=== PATIENT | female | born 1945 | race Caucasian/White ===

== ENCOUNTER → 2019-09-27 11:12 | Outpatient (CLI) | payer MEDICARE, SELFPAY ==
--- NOTE | ~2019-09-27 | MM_ITS ---
EXAMINATION: MM screening chaitanya BI w jodie HISTORY: Screening mammogram TECHNIQUE: Craniocaudal and mediolateral oblique 3-D tomosynthesis images were obtained and synthetic 2-D images were generated. CAD analysis was submitted and interpreted. COMPARISON: 09/04/2018, 08/30/2017, 09/03/2016 bilateral digital screening mammogram examinations BREAST PARENCHYMAL COMPOSITION: There are scattered areas of fibroglandular density. FINDINGS: Stable mild fibroglandular asymmetry. Scattered benign calcifications are noted bilaterally . There is no evidence of suspicious mass, calcification, or architectural distortion to suggest monty gnancy in either breast. There has been no suspicious interval change. IMPRESSION: 1. No mammographic evidence of malignancy. 2. Recommend routine screening mammography in one year. BI-RADS Category 2: Benign finding(s). Reviewed, dictated and finalized at location A. 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
== END ==
PROVIDERS: PCP Family Medicine; Visit Provider Obstetrics & Gynecology
DX: Z12.31 Encounter for screening mammogram for malignant neoplasm of breast (principal)
CPT/HCPCS: 77063; 77067

== ENCOUNTER 2020-11-21 10:52 | Outpatient (CLI) | payer MEDICARE, SELFPAY ==
--- NOTE | ~2020-11-21 | MM_ITS ---
EXAMINATION: MM screening chaitanya BI w jodie HISTORY: Screening mammogram TECHNIQUE: Craniocaudal and mediolateral oblique 3-D tomosynthesis images were obtained and synthetic 2-D images were generated. CAD analysis was submitted and interpreted. COMPARISON: 09/27/2019, 09/04/2018, 08/30/2017 bilateral digital screening mammogram examinations BREAST PARENCHYMAL COMPOSITION: There are scattered areas of fibroglandular density. FINDINGS: Scattered bilateral benign calcifications. There is no evidence of suspicious mass, calcifi cation, or architectural distortion to suggest malignancy in either breast. There has been no suspici ous interval change. IMPRESSION: 1. No mammographic evidence of malignancy. 2. Recommend routine screening mammography in one year. BI-RADS Category 2: Benign finding(s). Reviewed, dictated and finalized at location A.
== END 2020-11-21 10:53 | disposition home or self-care (01) ==
LOC: ANHIMG 10:56
PROVIDERS: PCP Physician Assistant; Visit Provider Obstetrics & Gynecology
DX: Z12.31 Encounter for screening mammogram for malignant neoplasm of breast (principal)
CPT/HCPCS: 77063; 77067

== ENCOUNTER 2021-10-07 01:03 | Day surgery (SDC) | payer MEDICARE, SELFPAY ==
[2021-08-28 15:14] VITALS: BMI 33.9
[2021-09-23 14:43] VITALS: BMI 34.0
--- NOTE | 2021-10-06 18:18 | P.CONGI_ITS ---
Assessment and Plan Assessment and plan (1) Dysphagia: Code(s): R13.10 - Dysphagia, unspecified Status: Acute Assessment and Plan: EGD with possible biopsy or dilatation or cautery. (2) Colon cancer screening: Code(s): Z12.11 - Encounter for screening for malignant neoplasm of colon Status: Acute Assessment and Plan: Colonoscopy with possible biopsy or polypectomy or cautery or injection of substances. GI Consult Note Consult date/time: 10/06/21 18:18 HPI: Apoorva Quiros is a 76 year old female was referred because of dysphag ia. She has had esophageal dilatations in the past. 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 The last time she required esophageal dilatation for stricture was about 7 years ago. She is also due for colon cancer screening. Review of Systems Review of Systems: All systems reviewed & are unremarkable except as noted in HPI and below PMFSH Past Medical History Medical History Anxiety Cancer History of lung cancer Family History Family History Father Diabetes mellitus Hypertension Heart disease Mother Breast cancer Hypertension Heart disease Sibling Diabetes mellitus Hypertension Cancer Grandparent Heart disease Social History Social History Smoking status: Former smoker Tobacco type: cigarettes Alcohol intake: never Substance use: never Substance use type: does not use Living arrangements: with family Spiritual care concerns: No Meds Home Medications and Allergies Home Medications Medication Instructions Recorded Confirmed Type Hylands Leg Cramps 1 tablet PO DAILY 10/06/20 08/28/21 History aspirin-caffeine 500 mg-32.5 mg 1 tablet PO DAILY 10/06/20 08/28/21 History tablet hydroxychloroquine 200 mg tablet 200 mg PO BID 10/06/20 08/28/21 History multivitamin 1 tablet PO DAILY 10/06/20 08/28/21 History omeprazole 20 mg capsule,delayed 20 mg PO DAILY #90 cap 04/06/21 08/28/21 Rx release rosuvastatin 10 mg tablet 10 mg PO DAILY #90 tablet 04/06/21 08/28/21 Rx triamterene 37.5 See Rx Instructions .ROUTE 04/06/21 08/28/21 Rx mg-hydrochlorothiazide 25 mg .COMPLEX #90 cap capsule temazepam 30 mg capsule 30 mg PO QHS PRN #90 cap 08/18/21 08/28/21 Rx diazepam [Valium] 5 mg PO HS PRN 08/28/21 08/28/21 History metoprolol succinate 25 mg PO DAILY 08/28/21 08/28/21 History Allergies Allergy/AdvReac Type Severity Reaction Status Date / Time No Known Allergies Allergy Verified 10/07/21 09:21 Exam Const: General: alert Orientation/consciousness: patient oriented x3 Resp: Auscultation: clear to auscultation bilaterally Cardio: Rhythm: regular rhythm GI: GI Palp: Yes Soft to palpation and No Tenderness to palpation present (GI) Neuro: General: patient oriented x3
[2021-10-07 09:23] VITALS: BP 175/75; PULSE 102; RESP 18; TEMP 36.6; O2SAT 100
[2021-10-07] MEDS: LACTATED RINGERS 1,000 ML 150 ML IV CONT (09:46)
--- NOTE | 2021-10-07 10:28 | P.PNAN_ITS ---
Anes - Initial Pre Proc Eval Procedure: Operation Date: 10/07/21 10:30 Proposed Procedures p Esophagogastroduodenoscopy & Screening Colonoscopy - Krystian Felix MD Date/Time: 10/07/21 10:28 Surgeon: Krystian Felix MD Pre Op Diagnosis: NEoplasm Screen,Dysphagia Patient Data Age: 76 Gender: F Height: 1.68 m Weight: 95.5 kg Last Vital Signs Temp 97.9 F 10/07/21 09:23 Pulse 102 H 10/07/21 09:23 Resp 18 10/07/21 09:23 BP 175/75 H 10/07/21 09:23 Pulse Ox 100 10/07/21 09:23 Allergies Allergy/AdvReac Type Severity Reaction Status Date / Time No Known Allergies Allergy Verified 10/07/21 09:21 Home Medications Medication Instructions Recorded Confirmed Type Hylands Leg Cramps 1 tablet PO DAILY 10/06/20 08/28/21 History aspirin-caffeine 500 mg-32.5 mg 1 tablet PO DAILY 10/06/20 08/28/21 History tablet hydroxychloroquine 200 mg tablet 200 mg PO BID 10/06/20 08/28/21 History multivitamin 1 tablet PO DAILY 10/06/20 08/28/21 History omeprazole 20 mg capsule,delayed 20 mg PO DAILY #90 cap 04/06/21 08/28/21 Rx release rosuvastatin 10 mg tablet 10 mg PO DAILY #90 tablet 04/06/21 08/28/21 Rx triamterene 37.5 See Rx Instructions .ROUTE 04/06/21 08/28/21 Rx mg-hydrochlorothiazide 25 mg .COMPLEX #90 cap capsule temazepam 30 mg capsule 30 mg PO QHS PRN #90 cap 08/18/21 08/28/21 Rx diazepam [Valium] 5 mg PO HS PRN 08/28/21 08/28/21 History metoprolol succinate 25 mg PO DAILY 08/28/21 08/28/21 History Patient hx anesthesia problems: none Family hx anesthesia problems: none Results Review: All pre-operative results and documents have been reviewed as part of the pre-operative evaluation. [facility]LY [facility] Past Medical History Medical History Anxiety Cancer History of lung cancer Family History Family History Father Diabetes mellitus Hypertension Heart disease Mother Breast cancer Hypertension Heart disease Sibling Diabetes mellitus Hypertension Cancer Grandparent Heart disease Social History Social History Smoking status: Former smoker Tobacco type: cigarettes Alcohol intake: never Substance use: never Substance use type: does not use Living arrangements: with family Spiritual care concerns: No Anes - Eval Final PreProcedure Day of Procedure 10/07/21 10:28 Patient weight: obese Heart: regular rate and rhythm Lungs: clear to auscultation Airway: Mallampati scale class II Neurological: alert and oriented Last oral intake: >/= 8 hours ASA classification: III Emergent: no Anesthetic plan: proceed Anesthesia type and monitoring: general GIVS and standard monitoring Results Review: All pre-operative results and documents have been reviewed as part of the pre-operative evaluation. Informed Consent: The patient's anesthetic plan and its attendant risks and benefits were discussed with the patient/family/POA. Questions were solicited and answers provided to the satisfaction of the patient/family/POA.
--- NOTE | 2021-10-07 10:59 | SUR.OPER ---
EGD ended at 1052. Colonoscopy started at 1058.
[2021-10-07 11:12] VITALS: BP 114/58; PULSE 91; RESP 19; O2SAT 100
[2021-10-07 11:22] VITALS: BP 143/80; PULSE 89; RESP 18; O2SAT 100
[2021-10-07 11:32] VITALS: BP 149/78; PULSE 69; RESP 18; O2SAT 100
== END 2021-10-07 11:42 | disposition home or self-care (01) ==
PROVIDERS: PCP Physician Assistant; Visit Provider Internal Medicine Gastroenterology
PROC: 0DJ08ZZ Inspection of Upper Intestinal Tract, Via Natural or Artificial Opening Endoscopic (ICD-10-PCS; CPT 43235; principal; 2021-10-07 10:30)
DX: Z12.11 Encounter for screening for malignant neoplasm of colon (principal); R13.10 Dysphagia, unspecified; K22.2 Esophageal obstruction; K29.50 Unspecified chronic gastritis without bleeding; K63.89 Other specified diseases of intestine; K64.8 Other hemorrhoids; F41.9 Anxiety disorder, unspecified; Z85.118 Personal history of other malignant neoplasm of bronchus and lung
CPT/HCPCS: 43249; 43239; G0121; 88305; C1726; J2704; J7120

== ENCOUNTER → 2021-11-23 10:03 | Outpatient (CLI) | payer MEDICARE, SELFPAY ==
--- NOTE | ~2021-11-23 | MM_ITS ---
EXAMINATION: MM screening chaitanya BI w jodie HISTORY: Screening mammogram TECHNIQUE: Craniocaudal and mediolateral oblique 3-D tomosynthesis images were obtained and synthetic 2-D images were generated. CAD analysis was submitted and interpreted. COMPARISON: 11/21/2020, 09/27/2019, 09/04/2018 bilateral screening mammogram examinations BREAST PARENCHYMAL COMPOSITION: There are scattered areas of fibroglandular density. FINDINGS: Scattered bilateral benign calcifications are again present. There is no evidence of suspic ious mass, calcification, or architectural distortion to suggest malignancy in either breast. There h as been no suspicious interval change. IMPRESSION: 1. No mammographic evidence of malignancy. 2. Recommend routine screening mammography in one year. BI-RADS Category 2: Benign finding(s). Reviewed, dictated and finalized at location A.
== END ==
PROVIDERS: Visit Provider Obstetrics & Gynecology
DX: Z12.31 Encounter for screening mammogram for malignant neoplasm of breast (principal)
CPT/HCPCS: 77063; 77067

== ENCOUNTER 2022-06-16 09:00 | Outpatient (NON) | payer MEDICARE, SELFPAY | END 2022-06-16 09:01 | disposition home or self-care (01) | PROVIDERS: PCP Physician Assistant; Visit Provider Surgery Plastic and Reconstructive Surgery | DX: C43.9 Malignant melanoma of skin, unspecified (principal) | CPT/HCPCS: 88305; 88342 ==

== ENCOUNTER → 2022-11-25 09:50 | Outpatient (CLI) | payer MEDICARE, SELFPAY ==
--- NOTE | ~2022-11-25 | MM_ITS ---
EXAMINATION: MM screening chaitanya BI w jodie HISTORY: Screening mammogram TECHNIQUE: Craniocaudal and mediolateral oblique 3-D tomosynthesis images were obtained and synthetic 2-D images were generated. CAD analysis was submitted and interpreted. COMPARISON: November 23, 2021, and 2020 and September 27, 2019 screening mammogram examinations BREAST PARENCHYMAL COMPOSITION: There are scattered areas of fibroglandular density. FINDINGS: There are scattered bilateral benign calcifications. There is no evidence of suspicious mas s, calcification, or architectural distortion to suggest malignancy in either breast. There has been no suspicious interval change. IMPRESSION: 1. No mammographic evidence of malignancy. 2. Recommend routine screening mammography in one year. BI-RADS Category 2: Benign finding(s). Reviewed, dictated and finalized at location A.
== END ==
PROVIDERS: PCP Obstetrics & Gynecology; Visit Provider Obstetrics & Gynecology
DX: Z12.31 Encounter for screening mammogram for malignant neoplasm of breast (principal)
CPT/HCPCS: 77063; 77067

== ENCOUNTER 2023-06-20 09:20 | Outpatient (CLI) | payer MEDICARE, SELFPAY ==
[2023-06-20 10:19] LABS: Appearance Urine Turbid (Clear); Bacteria Urine 4+ /hpf; Bilirubin Urine 1+ (Negative); Blood Urine Negative (Negative); Color Urine Dark Yellow (Yellow); Glucose Urine UA 3+ mg/dL (Negative); Ketones Urine Trace mg/dL (Negative); Leukocyte Esterase Ur 1+ LEU/UL (NEGATIVE); Need Manual Microscopic Reviewed; Nitrate Urine Negative (Negative); Protein Urine Trace mg/dL (Negative); Squamous Epithelial Cell Urine Many /hpf (Few); WBC Urine 21-50 /hpf (0-3); pH Urine 5.5 (5.0-9.0)
[2023-06-20 10:26] LABS: Specific Grav Ur 1.041 (1.001-1.035)
[2023-06-20 10:33] LABS: Add Urine Microscopic? YES
== END 2023-06-20 09:21 | disposition home or self-care (01) ==
PROVIDERS: PCP Physician Assistant; Visit Provider Physician Assistant
DX: R10.9 Unspecified abdominal pain (principal)
CPT/HCPCS: 81001; 87086

== ENCOUNTER 2023-07-04 06:53 | Outpatient (CLI) | payer MEDICARE, SELFPAY ==
--- NOTE | ~2023-07-04 | CT_ITS ---
EXAMINATION: CT chest abdomen pelvis w con DATE: 07/04/2023 07:31 INDICATION: Lung nodules. Low back pain. TECHNIQUE: Computed tomography (CT) of the chest, abdomen, and pelvis was performed with 100 mL Omnip aque 350 intravenous contrast. Automated exposure control and iterative reconstruction technique were employed. The dose-length product was 781.48 mGy-cm. COMPARISON: CT abdomen and pelvis 08/06/2015, chest CT 03/07/2013 FINDINGS: CHEST CT: There are changes of left upper lobectomy. There is mild atelectasis bilaterally. A calcified right l atif nodule is consistent with old granulomatous disease. No pleural effusion. There are nodules in th e thyroid measuring up to 15 mm. The heart size is normal. No pericardial effusion. There are coronar y artery calcifications. There is severe cervical and thoracic spondylosis. There are benign bone isl ands in thoracic spine. ABDOMEN/PELVIS CT: There is a small sliding hiatal hernia. The liver, gallbladder, spleen, pancreas, and adrenal glands are normal. There are cysts in the kidneys measuring up to 7.3 cm on the right. There is calcified at herosclerosis of the aorta and many of the other arteries. There are no dilated loops of bowel. The a ppendix is not visualized. There are no pathologically enlarged lymph nodes. There is no free intrape ritoneal fluid. There is a benign bone island in left pelvis. There are benign bone islands in lumbar spine and proximal left femur. There is lumbar levoscoliosis and severe spondylosis. IMPRESSION: 1. Left upper lobectomy. 2. Small sliding hiatal hernia. 3. Multinodular goiter with worsening from 03/07/2013. Consider thyroid ultrasound for risk stratifica tion. 4. Severe spondylosis. Reviewed, dictated and finalized at location E. LINE WALKER IMPRESSION: 1. Left upper lobectomy. 2. Small sliding hiatal hernia. 3. Multinodular goiter with worsening from 03/07/2013. Consider thyroid ultrasou nd for risk stratification. 4. Severe spondylosis.
[2023-07-04 07:23] LABS: Estimated Glomerular Filt Rate 54
== END 2023-07-04 06:54 | disposition home or self-care (01) ==
PROVIDERS: PCP Physician Assistant; Visit Provider Physician Assistant
DX: M47.896 Other spondylosis, lumbar region (principal); E04.2 Nontoxic multinodular goiter; K44.9 Diaphragmatic hernia without obstruction or gangrene; Z85.118 Personal history of other malignant neoplasm of bronchus and lung
CPT/HCPCS: 71260; 74177; Q9967

== ENCOUNTER 2023-07-25 08:22 | Outpatient (CLI) | payer MEDICARE, SELFPAY ==
--- NOTE | ~2023-07-25 | US_ITS ---
EXAMINATION: US thyroid DATE: 07/25/2023 09:00 INDICATION: Thyroid nodule. TECHNIQUE: Multiple ultrasound images of the thyroid were obtained. COMPARISON: Ultrasound 03/14/2013 FINDINGS: The right thyroid lobe measures 4.0 x 1.9 x 1.9 cm. The left thyroid lobe measures 3.9 x 1.4 x 1.7 c m. In the right thyroid lobe, there is a 2.1 cm predominantly solid, hypoechoic, wider than tall nod ule with smooth margin without echogenic foci (TI-RADS TR4), stable from 03/14/13. In the right thyroi d lobe, there is a 7 mm predominantly solid, hypoechoic, wider than tall nodule with smooth margin wi thout echogenic foci (TR4). In the left thyroid lobe, there is a 2.0 cm probably solid, hypoechoic, w ider than tall nodule with ill-defined margin without echogenic foci (TR4), stable from 03/14/13. IMPRESSION: 1. Thyroid nodules, likely not clinically significant. No follow-up is needed. Reviewed, dictated and finalized at location A. 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
== END 2023-07-25 08:23 | disposition home or self-care (01) ==
PROVIDERS: PCP Physician Assistant; Visit Provider Physician Assistant
DX: E04.2 Nontoxic multinodular goiter (principal)
CPT/HCPCS: 76536

== ENCOUNTER 2023-11-30 08:57 | Outpatient (CLI) | payer MEDICARE, SELFPAY ==
--- NOTE | ~2023-11-30 | XR_ITS ---
Right Shoulder Technique: AP and scapular Y views were obtained. Clinical History: Pain Findings: No fracture or dislocation is seen. Osseous alignment is anatomic. There is mild AC joint d egenerative change. Glenohumeral joint intact. Soft tissues are unremarkable. Impression: . Mild AC joint degenerative change, otherwise unremarkable exam. Reviewed, dictated and finalized at location . Impression: . Mild AC joint degenerative change, otherwise unremarkable exam.
--- NOTE | ~2023-11-30 | XR_ITS ---
Right elbow Technique: AP and lateral views were obtained. Clinical History: Pain Findings: No acute fracture or dislocation is seen. Osseous alignment is anatomic. Joint spaces are p reserved. There is no displacement of the fat pads, and soft tissues are unremarkable. Impression: Unremarkable radiographs. Reviewed, dictated and finalized at location . Impression: Unremarkable radiographs.
== END 2023-11-30 08:58 | disposition home or self-care (01) ==
PROVIDERS: PCP Physician Assistant; Visit Provider Physician Assistant
DX: M25.521 Pain in right elbow (principal); M19.011 Primary osteoarthritis, right shoulder
CPT/HCPCS: 73030; 73070

== ENCOUNTER 2024-01-10 07:38 | Outpatient (CLI) | payer MEDICARE, SELFPAY ==
--- NOTE | ~2024-01-10 | MR_ITS ---
MRI of the lumbar spine Clinical History: Radiculopathy Technique: Axial T2-weighted images, and sagittal T1-weighted, T2-weighted, and T2 fat-sat images wer e acquired. Findings: There is no fracture of the lumbar spine. There is minimal grade 1 anterolisthesis of L2 ov er L3. There is 4 mm anterolisthesis of L4 over L5. There are type I Modic changes about the L1-L2 di sc space. Probable minimal type I Modic changes about the L4-L5 disc space at the inferior L4 endplat e region. No suspicious bone marrow signal abnormality seen. At L1-L2, there is advanced degenerative disc narrowing. There is disc bulge most prominent at the le ft foraminal region. There is minimal central canal stenosis. There is moderate facet arthropathy elliott aterally. There is moderate left neural foraminal narrowing. At L2-L3, there is mild to moderate degenerative disc narrowing. There is diffuse disc bulge and adva nced facet arthropathy. No central canal stenosis. Neural foramina are preserved. At L3-L4, there is severe degenerative disc narrowing. There is diffuse disc bulge and severe facet a rthropathy, resulting in mild central canal stenosis/thecal sac compression. There is mild to moderat e right neural foraminal narrowing. Left neural foramen preserved. At L4-L5, there is diffuse disc bulge/uncovering with severe facet arthropathy, which results in sera re spinal canal stenosis/thecal sac compression. There is moderate to severe left neural foraminal na rrowing. There is minimal right neural foraminal narrowing. At L5-S1, disc bulge and moderate facet arthropathy are present. No central canal stenosis. There is severe left neural foraminal narrowing. Right neural foramen preserved. Paravertebral soft tissues are unremarkable. Impression: Severe degenerative spondylosis, as detailed above. Findings are probably worst at L4-L5. Grade 1 listheses, as above. Reviewed, dictated and finalized at location M. Impression: Severe degenerative spondylosis, as detailed above. Findings are probably worst at L4-L5. Grade 1 listheses, as above.
== END 2024-01-10 07:39 | disposition home or self-care (01) ==
PROVIDERS: PCP Physician Assistant; Visit Provider Physician Assistant
DX: M47.896 Other spondylosis, lumbar region (principal); M43.16 Spondylolisthesis, lumbar region
CPT/HCPCS: 72148

== ENCOUNTER 2024-01-19 11:22 | Outpatient (CLI) | payer MEDICARE, SELFPAY ==
--- NOTE | ~2024-01-19 | MM_ITS ---
EXAMINATION: MM screening chaitanya BI w jodie HISTORY: Screening TECHNIQUE: Craniocaudal and mediolateral oblique 3-D tomosynthesis images were obtained and synthetic 2-D images were generated. CAD analysis was submitted and interpreted. COMPARISON: Comparison to multiple prior studies sequentially, with oldest reviewed study dated 08/30. BREAST PARENCHYMAL COMPOSITION: Not dense: There are scattered areas of fibroglandular density. FINDINGS: There is no evidence of suspicious mass, calcification, or architectural distortion to sugg est malignancy in either breast. There has been no suspicious interval change. IMPRESSION: 1. No mammographic evidence of malignancy. 2. Recommend routine screening mammography in one year. BI-RADS Category 1: Negative Reviewed, dictated and finalized at location B.
== END 2024-01-19 11:23 ==
PROVIDERS: PCP Obstetrics & Gynecology; Visit Provider Obstetrics & Gynecology
DX: Z12.31 Encounter for screening mammogram for malignant neoplasm of breast (principal)
CPT/HCPCS: 77063; 77067

== ENCOUNTER 2024-04-09 12:51 | Outpatient (CLI) | payer MEDICARE, SELFPAY ==
--- NOTE | ~2024-04-09 | MR_ITS ---
EXAMINATION: MR shoulder RT wo con DATE: 04/09/2024 13:53 INDICATION: Unspecified disorder of synovium and tendon, right shoulder. TECHNIQUE: Magnetic resonance imaging (MRI) of the right shoulder was performed without intravenous c ontrast. Sequences included axial PD-weighted FS FSE, coronal oblique PD-weighted FS FSE and T2-weigh girish FS FSE, and sagittal oblique T2-weighted FS FSE and T1-weighted FSE. COMPARISON: Right shoulder radiographs 11/30/2023 FINDINGS: Coracoacromial arch: The acromion undersurface is curved in morphology with anterior hook (type III). There is severe acro mioclavicular joint osteoarthritis including inferiorly directed osteophytes. There is severe subacro mial/subdeltoid bursitis. Rotator cuff: There is a full-thickness tear of supraspinatus and infraspinatus tendons measuring 3.5 cm anterior t o posterior by 3.7 cm proximal to distal. Teres minor tendon is normal. There is an articular-sided p artial tear of subscapularis tendon. There is mild fatty atrophy of the rotator cuff muscle bellies, worst in subscapularis muscle. Biceps tendon and glenoid labrum: There is a complete tear of proximal biceps tendon. There is degenerative tearing of the glenoid labr um. Fluid: There is a large glenohumeral joint effusion. Bones/cartilage: There is deep partial-thickness cartilage loss of glenoid and humeral head. Osteophytes are noted. IMPRESSION: 1. Full-thickness rotator cuff tear. 2. Moderate glenohumeral joint chondrosis. 3. Complete tear of proximal biceps tendon. 4. Severe acromioclavicular joint osteoarthritis. 5. Large glenohumeral joint effusion and severe subacromial/subdeltoid bursitis. Reviewed, dictated and finalized at location A. IMPRESSION: 1. Full-thickness rotator cuff tear. 2. Moderate glenohumeral joint chondrosis. 3. Complete tear of proximal biceps tendon. 4. Severe acromioclavicular joint osteoarthritis. 5. Large glenohumeral joint effusion and severe subacromial/subdeltoid bursitis .
== END 2024-04-09 12:52 | disposition home or self-care (01) ==
PROVIDERS: PCP Internal Medicine; Visit Provider Orthopaedic Surgery
DX: M67.921 Unspecified disorder of synovium and tendon, right upper arm (principal); M75.111 Incomplete rotator cuff tear or rupture of right shoulder, not specified as traumatic; M19.011 Primary osteoarthritis, right shoulder; M25.411 Effusion, right shoulder; S46.211D Strain of muscle, fascia and tendon of other parts of biceps, right arm, subsequent encounter; X58.XXXD Exposure to other specified factors, subsequent encounter
CPT/HCPCS: 73221

== ENCOUNTER 2024-06-28 12:27 | Outpatient (CLI) | payer MEDICARE, SELFPAY ==
--- NOTE | ~2024-06-28 | US_ITS ---
EXAM: Focused ultrasound examination of the soft tissues of the right hip HISTORY: R22.41 - Localized swelling, mass and lump, right lower limb TECHNIQUE: Sonographic evaluation of the soft tissues of the right hip were performed assessing deisy mynor appearance and color Doppler flow. COMPARISON: None. FINDINGS: Within the area of clinical concern is a well-circumscribed focus of increased echogenicity measuring 5.4 x 1.5 x 3.1 cm, sonographically representing a lipoma. Sonographic evaluation of the remainder of the soft tissues of the right hip demonstrate benign fibro fatty and fibromuscular elements without a cystic or solid lesion of concern. IMPRESSION: Findings suggestive of a lipoma within the area of clinical concern. Reviewed, dictated and finalized at location A. IT CHECKER
== END 2024-06-28 12:28 | disposition home or self-care (01) ==
PROVIDERS: PCP Internal Medicine; Visit Provider Internal Medicine
DX: R22.41 Localized swelling, mass and lump, right lower limb (principal)
CPT/HCPCS: 76882

== ENCOUNTER 2024-09-19 09:38 | Outpatient (CLI) | payer MEDICARE, SELFPAY ==
--- OUTSIDE RECORDS SUMMARY | 2024-09-19 10:27 | XMS_ITS | Referral Summary ---
Author Organization [facility] Address [address] [place] [address] Care Team Providers Care Neuroscience Specialist Name Role Phone Marcello Vega PA-C Primary Care Provide r Source Comments [facility],non-owned Affiliates and Associated Physician Practices is amultiple site organization consisting of ambulatory clinics and hospital sitesin [place], [place], [place] and [place]. This disclosure is being madepursuant to the Care Everywhere program and may not contain all information available regarding this patient. Last updated 18.[facility] [employer] Social History Tobacco Use Types Packs/Day Years Used Date Smoking Tobacco: Never Assessed Sex and Gender Information Value Date Recorded Sex Assigned at Not on file Gender Identity Not on file Sexual Orientation Not on file Plan of Treatment Not on file Care Teams Neuroscience Specialist Relationship Specialty Start Date End Date Marcello Vega PA-C [address] [place] [address] PCP - General 10/09/21
--- OUTSIDE RECORDS SUMMARY | 2024-09-19 10:27 | XMS_ITS | Clinical Summary ---
Author Organization [facility] Address [address] [place] [address] Care Team Providers Care Photographic Processor Name Role Phone Marcello Vega PA-C Primary Care Provide r Source Comments [facility],non-owned Affiliates and Associated Physician Practices is amultiple site organization consisting of ambulatory clinics and hospital sitesin [place], [place], [place] and [place]. This disclosure is being madepursuant to the Care Everywhere program and may not contain all information available regarding this patient. Last updated 18.[facility] [employer] Social History Tobacco Use Types Packs/Day Years Used Date Smoking Tobacco: Never Assessed Sex and Gender Information Value Date Recorded Sex Assigned at Not on file Gender Identity Not on file Sexual Orientation Not on file Plan of Treatment Health Maintenance Due Date Last Done Comments BONE DENSITY TESTING 1945 MEDICARE AWV ? 12 MONTHS 1945 HEPATITIS C SCREENING 06/25/1964 DTAP/TDAP/TD VACCINES (1 - Tdap) 1965 PNEUMOCOCCAL VACCINE 50+ (1 of 1 - PCV) 1996 ZOSTER VACCINE (1 of 2) 1996 Respiratory Syncytial Virus (RSV) Vaccine Pt: or over 60 yrs (1 - 1-dose 75+ series) 2021 COVID-19 VACCINE ( - 2023-2 5 season) 2024 INFLUENZA VACCINE (#1) 2024 DEPRESSION SCREENING 08/15/2024 HEPATITIS B VACCINE Aged Out No longe r eligible based on patient's age to complete this topic HIB VACCINE Aged Out No longer eligi ble based on patient's age to complete this topic HPV VACCINE Aged Out No longer eligi ble based on patient's age to complete this topic MENINGOCOCCAL (Group B) VACCINE Aged Out No longer eligible based on patient's age to complete this topic MENINGOCOCCAL VACCINE Aged Out No marybeth daria eligible based on patient's age to complete this topic Care Teams Photographic Processor Relationship Specialty Start Date End Date Marcello Vega PA-C [address] [place] [address] PCP - General 10/09/21
--- OUTSIDE RECORDS SUMMARY | 2024-09-19 10:27 | XMS_ITS | Encounter Summary ---
Author Organization [facility] Address [address] [place] [address] Care Team Providers Care Veterinary Practitioner Name Role Phone Marcello Vega PA-C Primary Care Provide r Encounter Details Date Type Department Care Team (Late st Contact Info) Description 06/04/2022 Lab Requisition [facility] [address] [place] [address] Edis Negro MD [address] [place] [address] Social History Tobacco Use Types Packs/Day Years Used Date Smoking Tobacco: Never Assessed Sex and Gender Information Value Date Recorded Sex Assigned at Not on file Gender Identity Not on file Sexual Orientation Not on file documented as of this encounter Plan of Treatment Not on file documented as of this encounter Procedures Procedure Name Priority Date/Time Associated Diagnosis Comments DERMATOPATHOLOGY Routine 06/02/2022 12:0 0 AM CDT documented in this encounter Results * DERMATOPATHOLOGY (06/02/2022 12:00 AM CDT) Case Report Dermatopathology Report ? Case: [id number] ? Authorizing Provider: ??Edis Negro MD ?Collected: ? 06/02/2022 12:00 AM ? Ordering Location: ? [facility] ?Received: ?06/04/2022 06:47 AM ? Pathologist: ? Rosemary Real MD ? Specimen: ?Skin, right lower leg ? 3:55 PM [facility] DERMAT[facility]ATHOLOGY [facility]OR[facility] Final Diagnosis Specimen A. 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 Path#[id number] 2 3:55 PM [facility]ERMATOPATH[facility] Gross Description Specimen A: Received is one formalin filled container labeled with the patient's name and designated right lower leg. The specimen consists of a shave biopsy measuring 15x7x1 mm. Jar 0. 2 3:55 PM [facility] DERMATOPATHOLOGY [facility]ORATORY Microscopic Description Specimen A. SKIN, right lower leg: There is a proliferation of melanocytes distributed in an irregular pattern along the dermal-epidermal junction with single cells predominating. Extension down the follicular epithelium and focal areas of confluence are present. This melanocytic proliferation is highlighted on MART-1/Melan-A. This lesion is present at the margin of the specimen. 2 3:55 PM [facility] DERMATOPATH[facility]Y [facility]ORAT[facility] Disclaimer An external and internal positive and negative controls are appropriate for the histochemical, immunohistochemical and immunofluorescence stain(s) in this case (if any), except where stated explicitly. The performance characteristics of the stain(s) cited in this report were developed and its performance characteristic determined by the Dermatopathology Laboratory at [facility], directed by Dr. Ben Daigle. These tests need not be, and therefore are not, approved by the [place] Food and Drug Administration. The tests are used for clinical purposes. Billing Codes Specimen Charges Stain Charges 72374 1 93829 1 2 3:55 PM [facility] DERMATOPATHOLOGY LABORATORY Embedded Images 2 3:55 PM CDT DERMATOPATHOLOGY LABORATORY Pathology/Cytolog y TISSUE SPECIMEN FROM SKIN / Unknown 06/02/2022 06/04/2022 6:47 AM CDT Edis Negro MD LAB - PATHOLOGY/CYTO LOGY ORDERABLES DERMATOPATHOLOGY LABORATORY [facility] - Department of Dermatology [facility] [address] [place] [address], [address] [phone] documented in this encounter Visit Diagnoses Not on filedocumented in this encounter Care Teams Veterinary Practitioner Relationship Specialty Start Date End Date Marcello Vega PA-C [address] [place] [address] PCP - General 10/09/21 documented as of this encounter
--- OUTSIDE RECORDS SUMMARY | 2024-09-19 10:27 | XMS_ITS | Continuity of Care Document ---
Author Organization [facility] Address [address] [place] [address] utive [facility] [address] [place] [address] Phone Care Team Providers Care Configuration Management Architect Name Role Phone Everett Darby Unavailable Unavailable Procedures Procedure Date Office/outpatient Visit, [facility] Advance Directives Directive Yes / No Effective Date File Name No Information Encounters Encounter Description Practice Location Reason(s) For Visit Diagnoses Date Provider Providers Copied on Encounter Office/outpat ient Visit, [facility], [address], [place], [place], [address], [place] tel:[phone] [facility] No Information [address] [facility] [address], [address], [place]. tel:[phone] Family History Family Member Type Diagnosis Age At Onset No Information Payers Payer name Insurance type Covered republican ID Authoriza tion(s) No Information Social History Type Description Quantity Date Captured Comments Sex Female Smoking Status No Information Chief Complaint And Reason For Visit No Information Reason For Referral Reason For Referral No Information History Of Present Illness Encounter Date Complaint History Of Prese nt Illness No Information Functional Status Date Functional Assessmen t No Information Instructions Date Instruction Additional Infor mation No Information Assessments Type Assessment Date No Information Patient Care Teams Name Effective Dates (start - stop) Status Members No Information
--- OUTSIDE RECORDS SUMMARY | 2024-09-19 10:27 | XMS_ITS ---
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 Past Plans No past plan information found. Radiation Treatments * No radiation treatments are documented for this patient in [facility]. Treatments may have been administered in another system. Lifetime Dose Tracking * Chemical Lifetime Dose Automatic Entry Manual Entr y DLP 2,497 mGycm 2,497 mGycm 0 mGycm
--- OUTSIDE RECORDS SUMMARY | 2024-09-19 10:27 | XMS_ITS | Patient Health Summary ---
Author Organization [facility] Address [address] [place] [address] Care Team Providers Care Pension Examiner Name Role Phone Marcello Vega PA-C Primary Care Provide r Note from [facility],non-owned Affiliates and Associated Physician Practices is amultiple site organization consisting of ambulatory clinics and hospital sitesin [place], [place], [place] and [place]. This disclosure is being madepursuant to the Care Everywhere program and may not contain all information available regarding this patient. Last updated 18.[facility] Social History Tobacco Use Types Packs/Day Years Used Date Smoking Tobacco: Never Assessed Sex and Gender Information Value Date Recorded Sex Assigned at Not on file Gender Identity Not on file Sexual Orientation Not on file Procedures * DERMATOPATHOLOGY(Performed 06/02/2022) Results * DERMATOPATHOLOGY (06/02/2022 12:00 AM CDT) Case Report Dermatopathology Report ? Case: [id number] ? Authorizing Provider: ??Edis Negro MD ?Collected: ? 06/02/2022 12:00 AM ? Ordering Location: ? [facility] ?Received: ?06/04/2022 06:47 AM ? Pathologist: ? Rosemary Real MD ? Specimen: ?Skin, right lower leg ? 3:55 PM CDT DERMATOPATHOLOGY LABORATORY Final Diagnosis Specimen A. 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 Path#[id number] 2 3:55 PM CDT DERMATOPATHOLOGY LABORATORY Gross Description Specimen A: Received is one formalin filled container labeled with the patient's name and designated right lower leg. The specimen consists of a shave biopsy measuring 15x7x1 mm. Jar 0. 3:55 PM CDT DERMATOPATHOLOGY LABORATORY Microscopic Description Specimen A. SKIN, right lower leg: There is a proliferation of melanocytes distributed in an irregular pattern along the dermal-epidermal junction with single cells predominating. Extension down the follicular epithelium and focal areas of confluence are present. This melanocytic proliferation is highlighted on MART-1/Melan-A. This lesion is present at the margin of the specimen. 2 3:55 PM CDT DERMATOPATHOLOGY LABORATORY Disclaimer An external and internal positive and negative controls are appropriate for the histochemical, immunohistochemical and immunofluorescence stain(s) in this case (if any), except where stated explicitly. The performance characteristics of the stain(s) cited in this report were developed and its performance characteristic determined by the Dermatopathology Laboratory at [facility], directed by Dr. Ben Daigle. These tests need not be, and therefore are not, approved by the [place] Food and Drug Administration. The tests are used for clinical purposes. Billing Codes Specimen Charges Stain Charges 93676 1 66083 1 2 3:55 PM CDT DERMATOPATHOLOGY LABORATORY Embedded Images 2 3:55 PM CDT DERMATOPATHOLOGY LABORATORY Pathology/Cytolog y TISSUE SPECIMEN FROM SKIN / Unknown 06/02/2022 06/04/2022 6:47 AM CDT Edis Negro MD LAB - PATHOLOGY/CYTO LOGY ORDERABLES DERMATOPATHOLOGY LABORATORY [facility] - Department of Dermatology [facility] [address] [place] [address], [address] [phone] Care Teams Pension Examiner Relationship Specialty Start Date End Date Marcello Vega PA-C [address] [place] [address] PCP - General 10/09/21
--- OUTSIDE RECORDS SUMMARY | 2024-09-19 10:28 | XMS_ITS | Referral Summary ---
Author Organization [facility] Address [address] [place] [address] Care Team Providers Care Keg Raiser Name Role Phone Noé Mendosa DO Primary Care Provider [phone] Allergies No known active allergies Medications diazePAM (VALIUM) 5 mg tablet TK 1 T PO QD PRN STRESS 1 9 Active omeprazole (PriLOSEC) 20 mg capsule TK 1 C PO QD 1 9 Active temazepam (RESTORIL) 30 mg capsuleIndicat ions:Insomnia Take 1 capsule (30 mg total) by mouth nightly as needed for sleep Active rosuvastatin (CRESTOR) 10 mg tablet Take 1 tablet (10 mg total) by mouth daily Active empagliflozin (Jardiance) 10 mg tablet TAKE 1 TABLET(10 MG) BY MOUTH DAILY 90 tablet 2 4 Active metoprolol XL (TOPROL-XL) 25 mg extended release tablet TAKE 1 TABLET(25 MG) BY MOUTH DAILY 90 tablet 2 4 Active Entresto 24-26 mg tablet TAKE 1 TABLET BY MOUTH TWICE DAILY 60 tablet 11 4 Active spironolactone (ALDACTONE) 25 mg tablet TAKE 1 TABLET(25 MG) BY MOUTH DAILY 90 tablet 1 5 Active spironolactone (ALDACTONE) 25 mg tablet TAKE 1 TABLET(25 MG) BY MOUTH DAILY 90 tablet 1 4 09/13/19 25 Discontinued Active Problems Problem Noted Date Diagnosed Date Personal history of tobacco use 01/20/2021 History of lung or bronchial cancer 12/26/2018 Overview (12/26/2018): Left upper lobectomy by oTlu in December 2015 Hiatal hernia without gangrene or obstruction BMI 33.0-33.9,adult 12/26/2018 Mixed hyperlipidemia 12/26/2018 Essential hypertension 12/26/2018 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, bilateral legs 06/01/2018 Social History Tobacco Use Types Packs/Day Years Used Date Smoking Tobacco: Former Cigarettes 1.8 56 1 960 - 2006 Smokeless Tobacco: Never Tobacco Cessation:Counseling Given: Not Answered Alcohol Use Standard Drinks/Week Comments Not Currently 0 (1 standard drink = 0.6 oz pur e alcohol) Comments Unknown Sex and Gender Information Value Date Recorded Sex Assigned at Not on file Legal Sex Female 11:23 AM CHICKEN FANCIER Gender Identity Not on file Sexual Orientation Not on file Last Filed Vital Signs Vital Sign Reading Time Taken Comments Blood Pressure 142/80 02/23/2024 11:51 AM CDT Pulse 75 02/08/2024 9:42 AM CDT Temperature 36.6 ??C (97.9 ??F) 01/31/2024 8:11 AM CD T Respiratory Rate 18 01/31/2024 8:11 AM CDT Oxygen Saturation 98% 02/08/2024 9:42 AM CDT Inhaled Oxygen Concentration - - Weight 92.1 kg (203 lb) 02/15/2024 10:09 AM CDT Height 167.6 cm (5' 6 ) 02/15/2024 10:09 AM CDT Body Mass Index 32.77 02/15/2024 10:09 AM CDT Plan of Treatment Not on file [place] [address] [address] [facility] [address] [place] [id number] MEDICARE [facility] MEDICARE Care Teams Keg Raiser Relationship Specialty Start Date End Date Noé Mendosa DO PCP - General Internal Medicine 02/08/24
--- OUTSIDE RECORDS SUMMARY | 2024-09-19 10:28 | XMS_ITS | Clinical Summary ---
Author Organization [facility] Address [address] [place] [address] Care Team Providers Care Ict Account Manager Name Role Phone Noé Mendosa DO Primary Care Provider [phone] Allergies No known active allergies Medications diazePAM [...] upper lobe of left lung Atherosclerosis of [place] ar teries of extremities with intermittent claudication, bilateral legs 06/01/2018 Surgical History Surgery Date Site/Laterality Comments NC TOTAL ABDOMINAL HYSTERECT W/WO RMVL TUBE OVARY Hysterectomy - (Added by TW Conv) THYROID SURGERY Thyroid Surgery - -thyroid nodule removed (Added by TW Conv) NC COLONOSCOPY FLX DX W/SWAPNA J SPEC WHEN PFRMD Colonoscopy (Fiberoptic) - -07/2012 (Added by TW Conv) ESOPHAGOGASTRODUODENOSCOPY Diagnostic Esophagogastroduodenoscopy - 07/2013 (Added by TW Conv) NC BRNCHSC INCL FLUOR GDNCE DX W/CELL WASHG SPX Bronchoscopy (Diagnostic) - (Added by TW Conv) Medical History Medical History Date Comments Personal history of other di seases of the digestive system History of esophageal reflux - (Added by TW Conv) Personal history of other di seases of the circulatory system History of hypertension - (A dded by TW Conv) Personal history of other sp ecified conditions History of insomnia - (Added by TW Conv) Pure hyperglyceridemia Essential hypertriglyceridemia - (Added by TW Conv) Urinary incontinence Urinary inc ontinence - (Added by TW Conv) Personal history of malignan t melanoma of skin History of malignant melanom a - -stage 2 melanoma removed from hip about a year ago (Added by TW Conv) Personal history of other ma lignant neoplasm of skin History of basal cell carcin arlen - (Added by TW Conv) Personal history of other di seases of the digestive system History of hiatal hernia - ( Added by TW Conv) Cancer (CMS/HCC) (HCC) lung Hypertension Anxiety Arthritis Rheumatoid arthritis (HCC) Family History Medical History Relation Name Comments Heart disease Father Heart Disease - (Added by TW Conv) Breast cancer Mother Breast Cancer - (Added by TW Conv) Heart disease Mother Heart Disease - (Added by TW Conv) Uterine cancer Sister Uterine Cance r - (Added by TW Conv) Relation Name Status Comments Father Mother Sister Social History Tobacco Use Types Packs/Day Years [...] on file Legal Sex Female 11:23 AM HAIR TINTER Gender Identity Not on file Sexual Orientation Not on file Obstetrics History Last Filed Vital Signs Vital Sign Reading [...] 02/15/2024 10:09 AM CDT Plan of Treatment Health Maintenance Due Date Last Done Comments Depression Screening 1945 Fall Risk Assessment 1945 Hepatitis C Screening 1945 Osteoporosis Screening-Bone Density Scan 1945 DTaP/Tdap/Td Vaccine (1 - Tdap) 1957 Hepatitis B Screening 1964 Zoster Vaccine (1 of 2) 1996 Well Visit 65+ 2011 Influenza Vaccine (#1) 2024 8, 05/25/2017, 05/10/2016, Additional history exists Pneumococcal vaccine 65+ Completed 017, 07/26/2016, 06/13/[address] [place] [address] [facility] [address] [place] MEDICARE [facility] MEDICARE Care Teams Ict Account Manager Relationship Specialty Start Date End Date Noé Mendosa DO PCP - General Internal Medicine 02/08/24
--- NOTE | 2024-09-19 10:31 | ECG_ITS ---
Test Date: 2024-09-19 10:48:20 Measurements Intervals Ralph Rate: 67 P: 87 NH: 158 QRS: -11 QRSD: 89 T: 29 QT: 365 QTc: 386 Interpretive Statements SINUS RHYTHM WITH OCCASIONAL VENTRICULAR PREMATURE COMPLEXES DELAYED PRECORDIAL R/S TRANSITION INFERIOR INFARCT, AGE INDETERMINATE NONSPECIFIC T-WAVE ABNORMALITY- ANTEROLATERAL LEADS BASELINE ARTIFACT- I, II, III, AVR ABNORMAL ECG No previous ECG available for comparison Electronically Signed On 09-19-2024 14:00:12 DECORATING INSPECTOR by Jose Armando Moser D.O.
[2024-09-19 10:59] LABS: Basophils Absolute Auto 0.1 K/mm3 (0.0-0.1); Basophils Percent Auto 0.8 % (0.2-1.2); Eosinophils Absolute Auto 0.2 K/mm3 (0-0.3); Eosinophils Percent Auto 1.9 % (0-4.4); Hematocrit 42.6 % (37.0-47.0); Hemoglobin 13.8 g/dL (12.0-15.0); Immature Granulocyte Absolute 0.02 K/mm3 (0.00-0.031); Immature Granulocyte Percent A 0.2 % (0-0.5); Lymphocytes Absolute Auto 2.09 K/mm3 (0.9-3.2); Lymphocytes Percent Auto 24.9 % (18.3-44.2); Mean Corpuscular HGB Conc 32.4 g/dl (32-36); Mean Corpuscular Hemoglobin 32.3 pg (26-34); Mean Corpuscular Volume 99.8 fl (80-100); Mean Platelet Volume 9.9 fl (7.4-10.4); Monocytes Absolute Auto 0.8 K/mm3 (0.1-0.6); Monocytes Percent Auto 9.5 % (2.6-8.5); Neutrophils Absolute Auto 5.3 K/mm3 (1.3-6.7); Neutrophils Percent Auto 62.7 % (45.5-73.1); Platelet Count Result 293 k/mm3 (150-375); Red Blood Count 4.27 M/mm3 (4.2-5.4); Red Cell Distribution Width 13.1 % (11.5-14.5); White Blood Count 8.4 K/mm3 (4.5-10.0)
[2024-09-19 12:12] LABS: MRSA (PCR) NOT DETECTED (NOT DETECTE)
== END 2024-09-19 09:39 | disposition home or self-care (01) ==
LOC: ANHSURGERY 09:43
PROVIDERS: PCP Internal Medicine; Visit Provider Orthopaedic Surgery
DX: Z01.818 Encounter for other preprocedural examination (principal); M19.011 Primary osteoarthritis, right shoulder; I10 Essential (primary) hypertension; E78.5 Hyperlipidemia, unspecified; R94.31 Abnormal electrocardiogram [ECG] [EKG]
CPT/HCPCS: 36415; 85025; 87641; 93005

== ENCOUNTER 2024-09-20 08:49 | Outpatient (CLI) | payer MEDICARE, SELFPAY ==
--- OUTSIDE RECORDS SUMMARY | 2024-09-20 08:58 | XMS_ITS | Patient Health Summary ---
Author Organization [facility] Address [address] [place] [address] Care Team Providers Care Voip Network Technician Name Role Phone Marcello Vega PA-C Primary Care Provide r Note from [facility],non-owned Affiliates and Associated Physician Practices is amultiple site organization consisting of ambulatory clinics and hospital sitesin [place], [place], [place] and [place]. This disclosure is being madepursuant to the Care Everywhere program and may not contain all information available regarding this patient. Last updated 18.[facility] Social History Tobacco Use Types Packs/Day Years Used Date Smoking Tobacco: Never Assessed Sex and Gender Information Value Date Recorded Sex Assigned at Not on file Gender Identity Not on file Sexual Orientation Not on file Procedures * DERMATOPATHOLOGY(Performed 06/02/2022) Results * DERMATOPATHOLOGY (06/02/2022 12:00 AM CDT) Case Report Dermatopathology Report Case: [id number] Authorizing Provider: Edis Negro MD Collected: 06/02/2022 12:00 AM Ordering Location: [facility] Received: 06/04/2022 06:47 AM Pathologist: Rosemary Real MD Specimen: Skin, right lower leg 2 3:55 PM CDT DERMATOPATHOLOGY LABORATORY Final Diagnosis Specimen A. 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 Path#[id number] 2 3:55 PM CDT DERMATOPATHOLOGY LABORATORY Gross [...] characteristic determined by the Dermatopathology Laboratory at [facility], directed by Dr. Ben Daigle. These tests need not be, and therefore are not, approved by the [place] Food and Drug Administration. The tests are used for clinical purposes. Billing Codes Specimen Charges Stain Charges 36865 1 37469 1 2 3:55 PM CDT DERMATOPATHOLOGY LABORATORY Embedded Images 3:55 PM CDT DERMATOPATHOLOGY LABORATORY Pathology/Cytolog y TISSUE SPECIMEN FROM SKIN / Unknown 06/02/2022 06/04/2022 6:47 AM CDT Edis Negro MD LAB - PATHOLOGY/CYTO LOGY ORDERABLES DERMATOPATHOLOGY LABORATORY [facility] - Department of Dermatology [facility] [address] [place] [address], [address] [phone] Care Teams Voip Network Technician Relationship Specialty Start Date End Date Marcello Vega PA-C [address] [place] [address] PCP - General 10/09/21
--- OUTSIDE RECORDS SUMMARY | 2024-09-20 08:58 | XMS_ITS | Referral Summary ---
Author Organization [facility] Address [address] [address] Care Team Providers Care Hospital Internship Name Role Phone Marcello Vega PA-C Primary Care Provide r Source Comments [facility],non-owned Affiliates and Associated Physician Practices is amultiple site organization consisting of ambulatory clinics and hospital sitesin [place], [place], [place] and [place]. This disclosure is being madepursuant to the Care Everywhere program and may not contain all information available regarding this patient. Last updated 18.[facility] Social History Tobacco Use Types Packs/Day Years Used Date Smoking Tobacco: Never Assessed Sex and Gender Information Value Date Recorded Sex Assigned at Not on file Gender Identity Not on file Sexual Orientation Not on file Plan of Treatment Not on file Care Teams Hospital Internship Relationship Specialty Start Date End Date Marcello Vega PA-C [address] [place] [address] PCP - General 10/09/21
--- OUTSIDE RECORDS SUMMARY | 2024-09-20 08:58 | XMS_ITS | Clinical Summary ---
Author Organization [facility] Address [address] [place] [address] Care Team Providers Care Lean Manufacturing Leader Name Role Phone Marcello Vega PA-C Primary Care Provide r Source Comments [facility],non-owned Affiliates and Associated Physician Practices is amultiple site organization consisting of ambulatory clinics and hospital sitesin [place], [place], [place] and [place]. This disclosure is being madepursuant to the Care Everywhere program and may not contain all information available regarding this patient. Last updated 18.[facility] Social History Tobacco Use Types Packs/Day Years Used Date Smoking Tobacco: Never Assessed Sex and Gender Information Value Date Recorded Sex Assigned at Not on file Gender Identity Not on file Sexual Orientation Not on file Plan of Treatment Health Maintenance Due Date Last Done Comments BONE DENSITY TESTING 1945 MEDICARE AWV 12 MONTHS 1945 HEPATITIS C SCREENING 06/25/1964 [...] age to complete this topic Care Teams Lean Manufacturing Leader Relationship Specialty Start Date End Date Marcello Vega PA-C [address] [place] [address] PCP - General 10/09/21
--- OUTSIDE RECORDS SUMMARY | 2024-09-20 08:58 | XMS_ITS | Encounter Summary ---
Author Organization [facility] Address [address] [place] [address] Care Team Providers Care Reefer Engineer Name Role Phone Marcello Vega PA-C Primary Care Provide r Encounter Details Date Type Department Care Team (Late st Contact Info) Description 06/04/2022 Lab Requisition [facility] DermPath Lab [address] [place] [id number] Edis Negro MD [address] [place] [address] Social History Tobacco Use Types Packs/Day [...] AM CDT) Case Report Dermatopathology Report Case: [id number] Authorizing Provider: Edis Negro MD Collected: 06/02/2022 12:00 AM Ordering Location: [facility] DermPath Lab Received: 06/04/2022 06:47 AM Pathologist: Rosemary Real MD Specimen: Skin, right lower leg 2 3:55 PM CDT DERMATOPATHOLOGY LABORATORY Final Diagnosis Specimen A. 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 Path#[id number] 3:55 PM CDT DERMATOPATHOLOGY LABORATORY Gross Description [...] present at the margin of the specimen. 3:55 PM CDT DERMATOPATHOLOGY LABORATORY Disclaimer An external and internal positive and negative controls are appropriate for the histochemical, immunohistochemical and immunofluorescence stain(s) in this case (if any), except where stated explicitly. The performance characteristics of the stain(s) cited in this report were developed and its performance characteristic determined by the Dermatopathology Laboratory at [facility], directed by Dr. Ben Daigle. These tests need not be, and therefore are not, approved by the [place] Food and Drug Administration. The tests are used for clinical purposes. Billing Codes Specimen Charges Stain Charges 72184 1 73905 1 3:55 PM CDT DERMATOPATHOLOGY LABORATORY Embedded Images 3:55 PM CDT DERMATOPATHOLOGY LABORATORY Pathology/Cytolog y TISSUE SPECIMEN FROM SKIN / Unknown 06/02/2022 06/04/2022 6:47 AM CDT Edis Negro MD LAB - PATHOLOGY/CYTO LOGY ORDERABLES DERMATOPATHOLOGY LABORATORY [facility] - Department of Dermatology [facility] Medicine [address] [place] [address], [address]rd [place] [address], [facility] [phone] documented in this encounter Visit Diagnoses Not on filedocumented in this encounter Care Teams Reefer Engineer Relationship Specialty Start Date End Date Marcello Vega PA-C [address] [place] [address] PCP - General 10/09/21 documented as of this encounter
--- OUTSIDE RECORDS SUMMARY | 2024-09-20 08:59 | XMS_ITS | Referral Summary ---
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 Gender Identity Not on file Sexual Orientation Not on file Last Filed Vital Signs Vital Sign Reading Time Taken Comments Blood Pressure 142/80 02/23/2024 11:51 AM CDT Pulse 75 02/08/2024 9:42 AM CDT Temperature 36.6 C (97.9 F) 01/31/2024 8:11 AM CDT Respiratory Rate 18 01/31/2024 8:11 AM CDT Oxygen Saturation 98% 02/08/2024 9:42 AM CDT Inhaled Oxygen Concentration - - Weight 92.1 kg (203 lb) 02/15/2024 10:09 AM CDT Height 167.6 cm (5' 6 ) 02/15/2024 10:09 AM CDT Body Mass Index 32.77 02/15/2024 10:09 AM CDT Plan of Treatment Not on file [place] [address] MEDIC[address] [facility] [address] [place] [id number] MEDICARE [facility] MEDICARE Care Teams Real Estate Agent/Broker Relationship Specialty Start Date End Date Noé Mendosa DO PCP - General Internal Medicine 02/08/24
--- OUTSIDE RECORDS SUMMARY | 2024-09-20 08:59 | XMS_ITS ---
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 Past Plans No past plan information found. Radiation Treatments * No radiation treatments are documented for this patient in [facility]. Treatments may have been administered in another system. Lifetime Dose Tracking * Chemical Lifetime Dose Automatic Entry Manual Entr y DLP 2,497 mGycm 2,497 mGycm 0 mGycm
--- OUTSIDE RECORDS SUMMARY | 2024-09-20 08:59 | XMS_ITS | Continuity of Care Document ---
Author Organization [facility] Address [address] [place] [address] [facility] [address] [place] [address] Phone Care Team Providers Care Cogeneration Technician Name Role Phone Everett Darby Unavailable Unavailable Procedures Procedure Date Office/outpatient Visit, [facility] Advance Directives Directive Yes / No Effective Date File Name No Information Encounters Encounter Description Practice Location Reason(s) For Visit Diagnoses Date Provider Providers Copied on Encounter Office/outpat ient Visit, [facility], [address], [place], [place], [id number], [place] tel:[phone] [facility] No Information [address] [facility] [address], [place], [address], [place]. tel:[phone] Family History Family Member Type Diagnosis Age At Onset No Information Payers Payer name Insurance type Covered libertarian ID Authoriza tion(s) No Information Social History [...]
--- OUTSIDE RECORDS SUMMARY | 2024-09-20 08:59 | XMS_ITS | Clinical Summary ---
Author Organization [facility] Address [address] [place] [address] Care Team Providers Care Credit Administration Manager Name Role Phone Noé Mendosa DO Primary Care Provider [phone] Allergies No known active allergies Medications diazePAM [...] upper lobe of left lung Atherosclerosis of [place] ar teries of extremities with intermittent claudication, bilateral legs 06/01/2018 Surgical History Surgery Date Site/Laterality Comments [place] TOTAL ABDOMINAL HYSTERECT W/WO RMVL TUBE OVARY Hysterectomy - (Added by TW Conv) THYROID SURGERY Thyroid Surgery - -thyroid nodule removed (Added by TW Conv) [place] COLONOSCOPY FLX DX W/SWAPNA J SPEC WHEN PFRMD Colonoscopy (Fiberoptic) - -07/2012 (Added by TW Conv) ESOPHAGOGASTRODUODENOSCOPY Diagnostic Esophagogastroduodenoscopy - 07/2013 (Added by TW Conv) [place] BRNCHSC INCL FLUOR GDNCE DX W/CELL WASHG [...] on file 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
[2024-09-20 09:35] LABS: Anion Gap 6 mmol/L (4-12); Blood Urea Nitrogen 26 mg/dL (7-17); Calcium 9.6 mg/dL (8.4-10.2); Carbon Dioxide 29 mmol/L (22-30); Chloride 104 mmol/L (98-107); Estimated Glomerular Filt Rate 53; Glucose 96 mg/dL (65-110); Potassium 4.7 mmol/L (3.4-5.0); Sodium 139 mmol/L (137-145)
== END 2024-09-20 08:50 | disposition home or self-care (01) ==
PROVIDERS: Anesthesiology; PCP Internal Medicine; Visit Provider Orthopaedic Surgery
DX: Z01.818 Encounter for other preprocedural examination (principal); Z79.899 Other long term (current) drug therapy
CPT/HCPCS: 36415; 80048

== ENCOUNTER 2025-01-21 11:14 | Outpatient (CLI) | payer MEDICARE, SELFPAY ==
--- NOTE | ~2025-01-21 | MM_ITS ---
EXAMINATION: MM screening chaitanya BI w jodie HISTORY: Screening TECHNIQUE: Craniocaudal and mediolateral oblique 3-D tomosynthesis images were obtained and synthetic 2-D images were generated. CAD analysis was submitted and interpreted. COMPARISON: Comparison to multiple prior studies sequentially, with oldest reviewed study dated 09/04. BREAST PARENCHYMAL COMPOSITION: Not dense: There are scattered areas of fibroglandular density. FINDINGS: There is no evidence of suspicious mass, calcification, or architectural distortion to sugg est malignancy in either breast. There has been no suspicious interval change. IMPRESSION: 1. No mammographic evidence of malignancy. 2. Recommend routine screening mammography in one year. BI-RADS Category 1: Negative Reviewed, dictated and finalized at location B.
== END 2025-01-21 11:15 | disposition home or self-care (01) ==
LOC: MICIMG 11:16
PROVIDERS: PCP Obstetrics & Gynecology; Visit Provider Obstetrics & Gynecology
DX: Z12.31 Encounter for screening mammogram for malignant neoplasm of breast (principal)
CPT/HCPCS: 77063; 77067

== ENCOUNTER 2025-07-15 13:26 | Outpatient (CLI) | payer MEDICARE, SELFPAY ==
--- NOTE | ~2025-07-15 | DEXA_ITS ---
Bone Density Report Name: KRYSTINA IRVIN Age: 80 Sex: Female Ethnicity: White Date of : 1945 Indication: postmenopausal; screening for osteoporosis; height loss; cancer; hysterectomy; Referring Provider: PEDRITO, SELENE Study: Bone densitometry was performed. Exam Date: July 15, 2025 Accession number: [id number] Bone Density: Region BMD T-score Z-score Classification AP Spine(L1-L4) 1.167 1.1 3.7 Normal Femoral Neck (Left) 0.663 -1.7 0.6 Osteopenia Total Hip (Left) 0.948 0.0 2.1 Normal Femoral Neck (Right) 0.653 -1.8 0.5 Osteopenia Total Hip (Right) 0.881 -0.5 1.5 Normal Total Hip Mean 0.914 -0.3 1.8 Normal World Health Organization criteria for BMD impression classify patients as: Normal (T-score at or above -1.0), Osteopenia (T-score between -1.0 and -2.5), or Osteoporosis (T-score at or below -2.5). 10-year Fracture Risk(1): Major Osteoporotic Fracture 13% Hip Fracture 3.3% Reported Risk Factors: [place] (), Neck BMD=0.653, BMI=32.9 (1) FRAX(R) Version 3.08. Fracture probability calculated for an untreated patient. Fracture probability may be lower if the patient has received treatment. Clinical Information Provided by Patient: Has used the following medications: Vitamin D Has the following medical conditions: Cancer, Hysterectomy Patient maximum height was 70 Menopause Age: 51 No regular weight bearing exercise Does not regularly consume dairy products Onset of menses at age 14 Number of children 2 Impression: The patient has low bone mass, based on the Right Femoral Neck T-score. The patient has an estimated ten-year risk of hip fracture of 3.3% and an estimated ten-year risk of major fracture of 13%, based on the WHO FRAX algorithm. Discussion: BONE DENSITY IS LOW AT ONE OR MORE SKELETAL SITES. THE PATIENT'S BMD AND CLINICAL RISK FACTORS CONTRIBUTE TO THIS PATIENT'S INCREASED RISK OF FRACTURE. This patient's lowest T-score is low at one or more skeletal sites. It meets the World Health Organization's (WHO) criteria for ?low bone mass? (T-score between -1.0 and -2.5). The patient's 10-year risk of hip fracture as calculated by FRAX exceeds the threshold where pharmacological therapy is recommended by the National Osteoporosis Foundation (NOF). However, all treatment decisions require clinical judgment and consideration of individual patient factors, including patient preferences, comorbidities, previous drug use, risk factors not captured in the FRAX model (e.g., frailty, falls, vitamin D deficiency, increased bone turnover, interval significant decline in bone density) and possible under or overestimation of fracture risk by FRAX. The patient should follow a healthful lifestyle (good nutrition with adequate calcium and vitamin D, and appropriate weight-bearing exercise). Follow-Up: Consider a repeat BMD and Vertebral Fracture Assessment (VFA) exam in 2 years or sooner if medically necessary, to reassess this patient's status. Reported by: ROSA on 07/15/2025 2:18:00 PM. Reviewed, dictated and finalized at location A.
--- OUTSIDE RECORDS SUMMARY | 2025-07-15 14:32 | XMS_ITS ---
Author Organization [facility] Address [address] [place] [address] Care Team Providers Care Business Development Professional Name Role Phone Bonnie Dorado NP Primary Care Provider [phone] Active Problems Patient Care Coordination No te Formatting of this note migh t be different from the original. Jessica Benitez NP 01/28/2025 [id number] This is a 79-year-old female patient presenting back to the clinic today for a 9 year follow-up after undergoing a left upper lobectomy for a stage I lung cancer in December 2015. She has a past medical history significant for anxiety, arthritis, lung cancer, hypertension, malignant melanoma of the skin, hypertension, GERD, hiatal hernia, basal cell carcinoma, and insomnia. She is a former 1-1/2 pack per day smoker times 46 years who quit in 2005. She was initially referred to the clinic by MALU Vega. She underwent a CT of the chest on 01/31/2024 which reveals: Postsurgical changes of left upper lobectomy, stable. No evidence of local recurrent disease or metastatic disease. All imaging available on file. She is here for further surgical evaluation and discussion. Problem Noted Date Diagnosed Date Personal history of tobacco use 01/20/2021 History of lung or bronchial cancer 12/26/2018 Overview (12/26/2018): Left upper lobectomy by Tolu in December 2015 Hiatal hernia without gangrene or obstruction Obesity (BMI 30-39.9) 12/26/2018 Assessment & Plan (02/12/2025 10:33 AM CDT): Discussed the patient's BMI. The BMI is above average. BMI management plan is completed. BMI Follow-up includes: nutrition counseling, exercise counseling and education provided. Mixed hyperlipidemia 12/26/2018 Essential hypertension 12/26/2018 Malignant neoplasm of upper lobe of left lung Atherosclerosis of upper [place] ar teries of extremities with intermittent claudication, bilateral legs 06/01/2018 Current Treatment and Therapy Plans No current plan information found. Past Treatment and Therapy Plans No past plan information found. Lifetime Dose Tracking * Chemical Lifetime Dose Automatic Entry Manual Entr y DLP 2,497 mGycm 2,497 mGycm 0 mGycm
--- OUTSIDE RECORDS SUMMARY | 2025-07-15 14:32 | XMS_ITS | Clinical Summary ---
Author Organization [email or web address] Address [address] [place] [address] Care Team Providers Care Hull Molder Name Role Phone Marcello Vega PA-C Primary Care Provide r Source Comments [email or web address],non-owned Affiliates and Associated Physician Practices is amultiple site organization consisting of ambulatory clinics and hospital sitesin [place], [place], [place] and [place]. This disclosure is being madepursuant to the Care Everywhere program and may not contain all information available regarding this patient. 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 Gender Identity Not on file Sexual Orientation Not on file Plan of Treatment Health Maintenance Due Date Last Done Comments BONE DENSITY TESTING 1945 HEPATITIS C SCREENING 06/25/1964 DTAP/TDAP/TD VACCINES (1 - Tdap) 1965 PNEUMOCOCCAL VACCINE 50+ (1 of 1 - PCV) 1996 ZOSTER VACCINE (1 of 2) 1996 Respiratory Syncytial Virus (RSV) Vaccine Pt: or over 60 yrs (1 - 1-dose 75+ series) 2021 DEPRESSION SCREENING 08/15/2024 COVID-19 VACCINE ( - 2024-2 6 season) 2025 INFLUENZA VACCINE (#1) 2025 HEPATITIS B VACCINE Aged Out No longe r eligible based on patient's age to complete this topic HIB VACCINE Aged Out No longer eligi ble based on patient's age to complete this topic HPV VACCINE Aged Out No longer eligi ble based on patient's age to complete this topic MENINGOCOCCAL (Group B) VACC INE SHARED DECISION-MAKING Aged Out No longer eligibl e based on patient's age to complete this topic MENINGOCOCCAL GROUPS A/C/Y/W VACCINE Aged Out No longer eligible b ased on patient's age to complete this topic [place] [address] MEDICARE Care Teams Hull Molder Relationship Specialty Start Date End Date Marcello Vega PA-C [address] [place] [address] PCP - General 10/09/21
--- OUTSIDE RECORDS SUMMARY | 2025-07-15 14:32 | XMS_ITS | Encounter Summary ---
Author Organization [facility] Address [address] [place] [address] Care Team Providers Care Bonding Molder Name Role Phone Marcello Vega PA-C Primary Care Provide r Encounter Details Date Type Department Care Team (Late st Contact Info) Description 06/04/2022 Lab Requisition [facility] DermPath Lab 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 Gender Identity Not on file Sexual Orientation Not on file documented as of this encounter Plan of Treatment Not on file documented as of this encounter Procedures Procedure Name Priority Date/Time Associated Diagnosis Comments DERMATOPATHOLOGY Routine 06/02/2022 12:0 0 AM CDT documented in this encounter Results * DERMATOPATHOLOGY (06/02/2022 12:00 AM CDT) Case Report Dermatopathology Report Case: [id number] Authorizing Provider: Edis Negro MD Collected: 06/02/2022 12:00 AM Ordering Location: [facility] DermPath Lab Received: 06/04/2022 06:47 AM Pathologist: Rosemary Real MD Specimen: Skin, right lower leg 3:55 PM CDT DERMATOPATHOLOGY LABORATORY Final Diagnosis Specimen A. SKIN, right lower leg: MELANOMA IN SITU, LENTIGINOUS TYPE (D03.71) PRESENT AT MARGIN (see microscopic description) 2 3:55 PM CDT DERMATOPATHOLOGY LABORATORY at 1555 CDT Clinical History SK vs MM. Path#[id number] 3:55 PM CDT DERMATOPATHOLOGY LABORATORY Gross Description [...] characteristic determined by the Dermatopathology Laboratory at [facility], directed by Dr. Ben Daigle. These tests need not be, and therefore are not, approved by the [place] Food and Drug Administration. The tests are used for clinical purposes. Billing Codes Specimen Charges Stain Charges 07286 1 82678 1 2 3:55 PM CDT DERMATOPATHOLOGY LABORATORY Embedded Images 2 3:55 PM CDT DERMATOPATHOLOGY LABORATORY Pathology/Cytolog y TISSUE SPECIMEN FROM SKIN / Unknown 06/02/2022 06/04/2022 6:47 AM CDT us Edis Negro MD LAB - PATHOLOGY/CYTOLOGY ORDER LETICIA Final Result DERMATOPATHOLOGY LABORATORY [facility] - Department of Dermatology [address], [address] [phone] documented in this encounter Visit Diagnoses Not on filedocumented in this encounter Care Teams Bonding Molder Relationship Specialty Start Date End Date Marcello Vega PA-C [address] [place] [address] PCP - General 10/09/21 documented as of this encounter
--- OUTSIDE RECORDS SUMMARY | 2025-07-15 14:32 | XMS_ITS | Clinical Summary ---
Author Organization [facility] Address [address] [place] [address] Care Team Providers Care Rap Artist Name Role Phone Bonnie Dorado NP Primary Care Provider Allergies No known active allergies Medications diazePAM (VALIUM) 5 mg tablet TK 1 T PO QD PRN STRESS 1 11/24/2018 Active omeprazole (PriLOSEC) 20 mg capsule TK 1 C PO QD 1 10/06/2018 Activ e temazepam (RESTORIL) 30 mg capsuleIndicati ons:Insomnia Take 1 capsule (30 mg total) by mouth nightly as needed for sleep Active Jardiance 10 mg tablet TAKE 1 TABLET(10 MG) BY MOUTH DAILY 90 tablet 2 12/18/2024 Active sacubitriL-vals jersey (ENTRESTO) 49-51 mg tabletIndicatio ns:chronic heart failure Take 1 tablet by mouth 2 (two) times a day 180 tablet 6 02/13/2025 Active rosuvastatin (CRESTOR) 20 mg tablet Take 1 tablet (20 mg total) by mouth daily 30 tablet 11 02/22/2025 Active spironolactone (ALDACTONE) 25 mg tablet TAKE 1 TABLET(25 MG) BY MOUTH DAILY 90 tablet 1 03/20/2025 Active Active Problems Patient Care Coordination No te Formatting of this note migh t be different from the original. Jessica Benitez NP 01/28/2025 1106 This is a 79-year-old female patient presenting [...] upper lobe of left lung Atherosclerosis of [place] ar teries of extremities with intermittent claudication, bilateral legs 06/01/2018 Immunizations Immunization Administration Dates Next Due Influenza, Quad, Adjuvantate d, Intramuscular 05/27/2020 Influenza, Trivalent, Adjuva nted, Intramuscular 10/22/2019 Influenza, Trivalent, High D ose, Split, Preservative Free, Intramuscular 05/24/2018,05/23/2018,05/25/2017,05/10,05/23/2015 Influenza, Trivalent, IM (MDV) 04/25/2014,2011 Pneumococcal Conjugate PCV 13 07/26/2016 Pneumococcal Polysaccharide PPV23 08/10/2017, ZOSTER Recombinant 08/05/2023 Surgical History Surgery Date Site/Laterality Comments [place] TOTAL ABDOMINAL HYSTERECT W/WO RMVL TUBE OVARY Hysterectomy - (Added by TW Conv) THYROID SURGERY Thyroid Surgery - -thyroid nodule removed (Added by TW Conv) [place] COLONOSCOPY FLX DX W/SWAPNA J SPEC WHEN PFRMD Colonoscopy (Fiberoptic) - -07/2012 (Added by TW Conv) ESOPHAGOGASTRODUODENOSCOPY Diagnostic Esophagogastroduodenoscopy - 07/2013 (Added by TW Conv) [place] BRNCHSC INCL FLUOR GDNCE DX W/CELL WASHG SPX Bronchoscopy (Diagnostic) - (Added by TW Conv) MELANOMA RESECTION Medical History Medical History Date Comments Personal [...] - ( Added by TW Conv) Cancer (HCC) lung Hypertension Anxiety Arthritis Rheumatoid arthritis [...] drink = 0.6 oz pur e alcohol) AUDIT-C Answer Date Recorded Q1: How often do you have a drink containing alcohol? Never 02/12/2025 Q2: How many drinks containi ng alcohol do you have on a typical day when you are drinking? Patient does not drink Q3: How often do you have si x or more drinks on one occasion? 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 Gender Identity Not on file Sexual Orientation Not on file Last Filed Vital Signs Vital Sign Reading Time Taken Comments Blood Pressure 132/72 02/13/2025 10:18 AM CDT Pulse 71 02/13/2025 10:18 AM CDT Temperature 36.6 C (97.8 F) 02/12/2025 10:30 AM CDT Respiratory Rate 18 02/04/2025 12:5 2 PM CDT Oxygen Saturation 98% 02/13/2025 10: 18 AM CDT Inhaled Oxygen Concentration - - Weight 90.2 kg (198 lb 12.8 oz) 025 10:18 AM CDT Height 167.6 cm (5' 6) 02/13/2025 10:1 8 AM CDT Body Mass Index 32.09 02/13/2025 10:18 AM CDT Plan of Treatment Health Maintenance Due Date Last Done Comments Hepatitis C Screening 1945 Osteoporosis Screening-Bone Density Scan 1945 DTaP/Tdap/Td Vaccine (1 - Tdap) 1957 Hepatitis B Screening 1964 Well Visit 65+ 2011 Zoster Vaccine (2 of 2) 09/30/2023 08/05/2023 Influenza Vaccine (#1) 2025 0, 10/22/2019, 05/24/2018, Additional history exists Depression Screening 02/12/2026 02/12/2025 Fall Risk Assessment 02/12/2026 02/12/2025 Pneumococcal vaccine 65+ Completed 017, 07/26/2016, 06/13/[address] [place] [address] MEDICARE [facility] MEDICARE [address] [place] [id number] MEDICARE [facility] MEDICARE SUPPLEMENT MEDICARE Care Teams Rap Artist Relationship Specialty Start Date End Date Bonnie Dorado NP [address] [place] [address] PCP - General Internal Medicine 02/12/25
== END 2025-07-15 13:27 | disposition home or self-care (01) ==
LOC: ANHFOHIMG 13:26
PROVIDERS: PCP Internal Medicine; Visit Provider Nurse Practitioner Family
DX: Z78.0 Asymptomatic menopausal state (principal); M85.852 Other specified disorders of bone density and structure, left thigh; M85.851 Other specified disorders of bone density and structure, right thigh
CPT/HCPCS: 77080